=== PATIENT | male | born 1965 | race African-American/Black ===

== ENCOUNTER 2017-12-10 23:47 | Emergency (ER) | payer BC ==
[~2017-12-10] VITALS: Ht 172.7 cm; Wt 112.5 kg
[2017-12-10 23:36] VITALS: BP 111/89
[~2017-12-10 23:47] MED LIST: METFORMIN HCL500 M1 ORAL; SYNTHROID25 MCG ORAL
[2017-12-11 00:39] VITALS: BP 118/70
[2017-12-11 01:09] VITALS: BP 118/70
--- NOTE | 2017-12-11 02:18 | Emergency Room Report ---
History of Present Illness General Chief Complaint: Syncope Source: Patient Present Illness HPI 52-year-old male presents ED for evaluation. Patient brought in by EMS. Patient had near syncopal episode at home. Patient was smoking marijuana states he felt immediately dizzy and lightheaded. Per EMS blood pressure low. Given IV fluids and on arrival blood pressure is improved. Patient states he still feels "high" and weak. Admits to smoking marijuana. Denies any other drug use. No other aggravating relieving factors. Denies any other associated symptoms Allergies: Coded Allergies: No Known Allergies (Unverified , 12/10/17) Patient History Past Medical History: none Past Surgical History: none Pertinent Family History: none Social History: Reports: drug use; Denies: smoking, alcohol use Immunizations: UTD Reviewed Nursing Documentation: PMH: Agreed; PSxH: Agreed Nursing Documentation-PMH Past Medical History: No History, Except For Review of Systems All Other Systems: negative except mentioned in HPI Physical Exam Vital Signs Date Time Temp Pulse Resp B/P (MAP) Pulse Ox O2 Delivery O2 Flow Rate FiO2 12/10/17 23:21 98.1 89 14 111/89 98 Room Air 98.1 Sp02 EP Interpretation: reviewed, normal General Appearance: no apparent distress, alert, GCS 15, non-toxic Head: normocephalic, atraumatic Eyes: bilateral eye normal inspection, bilateral eye PERRL ENT: hearing grossly normal, normal pharynx, no angioedema, normal voice Neck: full range of motion, supple/symm/no masses Respiratory: chest non-tender, lungs clear, normal breath sounds, speaking full sentences Cardiovascular #1: regular rate, rhythm, no edema Cardiovascular #2: 2+ carotid (R), 2+ carotid (L), 2+ radial (R), 2+ radial (L) , 2+ dorsalis pedis (R), 2+ dorsalis pedis (L) Gastrointestinal: normal bowel sounds, non tender, soft, non-distended, no guarding, no rebound Rectal: deferred Genitourinary: normal inspection, no CVA tenderness Musculoskeletal: back normal, gait/station normal, normal range of motion, non- tender Neurologic: alert, oriented x3, responsive, motor strength/tone normal, sensory intact, speech normal Psychiatric: judgement/insight normal, memory normal, mood/affect normal, no suicidal/homicidal ideation Reflexes: 3+ bicep (R), 3+ bicep (L), 3+ tricep (R), 3+ tricep (L), 3+ knee (R) , 3+ knee (L) Skin: normal color, no rash, warm/dry, well hydrated Lymphatic: no adenopathy Medical Decision Making Diagnostic Impression: Primary Impression: Marijuana use Additional Impression: Syncope Qualified Codes: R55 - Syncope and collapse ER Course Hospital Course 52-year-old male presents ED complaining of near syncopal episode after smoking marijuana differential - syncope, arrythmia, marijuana intoxication Clinical course Patient placed on stretcher. After initial history and physical I ordered EKG, IV fluids EKGnormal sinus rhythm no acute ischemic changes interpreted by me Patient given IV hydration. Observed on color television console monitor. No signs of arrhythmia. blood pressure normal. Patient feels better and is asking to be discharged Diagnosis - marijuana use, syncope stable and discharged to home. Followup with PMD. Return to ED if symptoms recur or worsen EKG Diagnostic Results Rate: normal Rhythm: NSR ST Segments: no acute changes ASA given to the pt in ED: No Rhythm Strip Diag. Results EP Interpretation: yes Rhythm: NSR, no PVC's, no ectopy Last Vital Signs Date Time Temp Pulse Resp B/P (MAP) Pulse Ox O2 Delivery O2 Flow Rate FiO2 12/11/17 01:09 98.0 91 19 118/70 97 Room Air 98.0 Status: improved Disposition: HOME, SELF-CARE Condition: Stable Referrals: NON PHYSICIAN (PCP) Patient Instructions: Cannabis Use Disorder Neil Smith MD Dec 11, 2017 02:18
== END 2017-12-11 01:11 | disposition home or self-care (01) ==
LOC: EDBD 23:47 → EMR 12-11 01:00
DX: F12.90 Cannabis use, unspecified, uncomplicated (principal); R55 Syncope and collapse
CPT/HCPCS: 96360; 99284